=== PATIENT | male | born 1975 | race Caucasian/White ===

== ENCOUNTER 2019-07-10 10:27 | Emergency (ER) | payer OTHER ==
[2019-07-10 10:34] VITALS: BP 113/72
--- NOTE | 2019-07-10 11:24 | ER Document Report ---
HPI - HPI Patient complains to provider of: right ear pain Time Seen by Provider: 07/10/19 11:11 Onset: Last week Onset/Duration: Persistent Quality of pain: Achy Pain Level: 2 Context: Patient presents complaining of right ear pain for the past week. Patient reports that he has decreased hearing in the ear will occasionally popliteus fluid in it. Patient denies any fever. Patient denies any drainage from the ear. Patient was seen recently and placed on antibiotics as well as Sudafed but denies any improvement of his symptoms. Associated Symptoms: Earache. denies: Nonproductive cough, Productive cough, Fever, Headache, Sore throat Exacerbated by: Denies Relieved by: Denies Similar symptoms previously: No Recently seen / treated by doctor: Yes - ROS ROS below otherwise negative: Yes Systems Reviewed and Negative: Yes All other systems reviewed and negative - CONSTITUTIONAL Constitutional: DENIES: Fever, Chills - EENT EENT: REPORTS: Ear Pain - GASTROINTESTINAL Gastrointestinal: DENIES: Nausea, Patient vomiting - DERM Skin Color: Normal Skin Problems: None Past Medical History - General Information source: Patient - Social History Smoking Status: Current Every Day Smoker Smoking Education Provided: Yes Frequency of alcohol use: None Drug Abuse: None Occupation: none Lives with: Family Family History: Reviewed & Not Pertinent - Medical History Medical History: Negative Surgical Hx: Negative Vertical Provider Document - CONSTITUTIONAL Agree With Documented VS: Yes Exam Limitations: No Limitations General Appearance: WD/WN, No Apparent Distress - INFECTION CONTROL TRAVEL OUTSIDE OF THE [place] IN LAST 30 DAYS: No - HEENT HEENT: Atraumatic, Normocephalic. negative: Pharyngeal Exudate, Pharyngeal Tenderness, Pharyngeal Erythema, Tympanic Membrane Red, Tympanic Membrane Bulging Notes: Patient with serous effusion to the right TM. Very minimal erythema to superior aspect of right TM. No pain with movement of helix. - NECK Neck: Normal Inspection, Supple - RESPIRATORY Respiratory: No Respiratory Distress - MUSCULOSKELETAL/EXTREMETIES Musculoskeletal/Extremeties: MAEW - NEURO Level of Consciousness: Awake, Alert, Appropriate Motor/Sensory: No Motor Deficit - DERM Integumentary: Warm, Dry, No Rash Course - Re-evaluation Re-evalutation: 07/10/19 11:22 Patient with what appears to be a serous effusion. No acute otitis media, no otitis externa. Patient encouraged to finish biotics he is Melchor started and to resume taking the Sudafed to help with symptoms. - Vital Signs Vital signs: Temp Pulse Resp BP Pulse Ox 98.1 F 59 L 18 113/72 99 07/10/19 10:32 07/10/19 10:32 07/10/19 10:32 07/10/19 10:32 07/10/19 10:32 Discharge - Discharge Clinical Impression: Serous otitis media Qualifiers: Chronicity: acute Laterality: right Recurrence: not specified as recurrent Qualified Code(s): H65.01 - Acute serous otitis media, right ear Condition: Stable Disposition: HOME, SELF-CARE Instructions: Nasal Corticosteroid Inhaler ([facility]), Serous Otitis Media ([facility]) Additional Instructions: Return immediately for any new or worsening symptoms Followup with your primary care provider, call tomorrow to make a followup appointment Prescriptions: Fluticasone Propionate [Flonase Nasal [place] 50 Mcg/[place] 16 gm] 2 spray NASL DAILY #1 bottle Cetirizine HCl [Zyrtec] 10 mg PO DAILY #30 capsule Forms: Smoking Cessation Education Referrals: [facility] [Provider Group] - Follow up as needed
== END 2019-07-10 11:33 | disposition home or self-care (01) ==
LOC: ER 10:27
DX: H65.01 Acute serous otitis media, right ear (principal); H92.01 Otalgia, right ear; H91.91 Unspecified hearing loss, right ear; F17.200 Nicotine dependence, unspecified, uncomplicated